=== PATIENT | female | born 1975 | race Two or more races ===

== ENCOUNTER 2022-11-23 21:52 | Emergency (ER) | payer OTHER ==
[~2022-11-23] VITALS: Ht 160 cm; Wt 72.6 kg
[2022-11-23] MEDS ORDERED: AZELASTINE137 MCG/0. NASAL (22:29)
[2022-11-23] MEDS ORDERED: CETIRIZINE HCL10 MG PO (22:29)
== END 2022-11-24 00:45 | disposition home or self-care (01) ==
LOC: ER 21:52
DX: M94.0 Chondrocostal junction syndrome [Tietze] (principal); J45.909 Unspecified asthma, uncomplicated; Z88.8 Allergy status to other drugs, medicaments and biological substances

== ENCOUNTER 2022-11-27 16:08 | Inpatient (IN) | payer OTHER ==
[~2022-11-27] VITALS: Ht 157.5 cm; Wt 65.3 kg
[~2022-11-27 16:08] MED LIST: AZELASTINE137 MCG/0. NASAL; CETIRIZINE HCL10 MG PO
--- NOTE | 2022-11-27 16:47 | NUR ---
SE RECIBE PTE ALERTA Y ORIENTADA X3 LA CUAL REFIERE VENIR POR DOLOR DE PECHO INTERMITENTE DESDE LA MANANA DE HOY Y VOMITOS X4. SE REALIZA EKG A PTE Y SE MIDEN S/V Y SE COLOCA EN AREA DE PASILLO.
--- NOTE | 2022-11-27 17:19 | NUR ---
SE ORIENTA PTE SOBRE TX A SEGUIR, LA MISMA REFIERE ENTENDER. SE HACEN MUESTRAS DE LAB BAJO MEDIDAS ASEPTICAS. PEND X-RAY
== END 2022-12-01 15:00 | disposition home or self-care (01) | DRG 417 ==
LOC: ER 16:08 → MEDI 23:02
PROVIDERS: General Practice; Surgery; ADMIT Internal Medicine; ATTEND Internal Medicine
PROC: BW21YZZ Computerized Tomography (CT Scan) of Abdomen and Pelvis using Other Contrast (ICD-10-PCS; 2022-11-27)
PROC: BW40ZZZ Ultrasonography of Abdomen (ICD-10-PCS; 2022-11-27)
PROC: BF37ZZZ Magnetic Resonance Imaging (MRI) of Pancreas (ICD-10-PCS; 2022-11-27)
PROC: 0FT44ZZ Resection of Gallbladder, Percutaneous Endoscopic Approach (ICD-10-PCS; principal; 2022-11-30 16:30)
DX: K80.10 Calculus of gallbladder with chronic cholecystitis without obstruction (principal); K85.90 Acute pancreatitis without necrosis or infection, unspecified; D72.828 Other elevated white blood cell count; K52.9 Noninfective gastroenteritis and colitis, unspecified

== ENCOUNTER 2023-07-14 14:22 | Emergency (ER) | payer OTHER ==
[~2023-07-14] VITALS: Ht 157.5 cm; Wt 65.8 kg
== END 2023-07-14 16:43 | disposition home or self-care (01) ==
LOC: ER 14:23
DX: H00.019 Hordeolum externum unspecified eye, unspecified eyelid (principal); Z91.048 Other nonmedicinal substance allergy status